=== PATIENT | male | born 1960 | race Caucasian/White ===

== ENCOUNTER 2020-10-11 09:19 | Outpatient (CLI) | payer BC, SELFPAY ==
--- NOTE | 2020-10-11 09:38 | XR_ITS ---
WS: [id number] LEFT KNEE: 3 VIEW(S) TECHNIQUE: AP, oblique(s) and lateral. HISTORY: ACUTE PAIN OF LEFT KNEE COMPARISON: None available. No fracture or dislocation. Mild narrowing of the medial compartment. No joint effusion. Mild soft tissue edema surrounding the knee. XR/XR knee LT 3V* [id number] IMPRESSION: Mild medial compartment narrowing. No fractures.
== END 2020-10-11 09:20 | disposition home or self-care (01) ==
PROVIDERS: PCP Family Medicine
DX: M25.562 Pain in left knee (principal)
CPT/HCPCS: 73562

== ENCOUNTER 2022-06-22 05:49 | Day surgery (SDC) | payer BC, SELFPAY ==
[2022-06-21 13:58] VITALS: BMI 25.7
[2022-06-22] VITALS (7 sets, daily range): BP systolic 125–170; BP diastolic 97–108; PULSE 63–88; RESP 12–22; TEMP 36.2–36.7; O2SAT 95–100
--- NOTE | 2022-06-22 06:09 | P.ANESASSM_ITS ---
Pre-Anesthetic Assessment Height/Weight: Height 1.8 m Weight 83.461 kg Preop Diagnosis: Bilat inguinal hernias Operation Date: 06/22/22 07:00 Proposed Procedures p 78787 x2--lap bilateral inguinal hernia repair with mesh K40.20(Bilateral) - Ar Alicia DO Familial anesthetic complications: None Was Beta Katherine taken within 24 hours: N/A Was Clonidine taken within 24 hours: N/A Last intake: 06/21/22 Social Alcohol and Tobacco (Chewing tobacco, last use 0600 spits out saliva and tobacco) Exam alert, oriented x 3, clear to auscultation bilaterally and regular rate & rhythm Airway Submandibular: within normal limits Cervical ROM: within normal limits Mallampati: Class I Dentition: full History/ROS No significant complaints Pulmonary None reported CV/HEM None reported METS > 4 None reported Hepatic None reported GI None reported Metabolic None reported Musc/skel None reported b/l inguinal hernia Neuropsych None reported Anesthetic Plan ASA status: 2 Anesthesia: Anesthesia Evaluation and General Other: We discussed risk and benefits of general anesthesia including PONV, sore throat (sometimes severe), corneal abrasion, positioning and peripheral nerve injuries, life threatening allergic reaction, post operative ICU admission requiring prolonged intubation, stroke, heart attack, , and rare incidences of recall. Patient consents to proceed with general anesthesia. Risk of > 500 ml blood loss (7ml/kg in children): No Medications/Allergies Home Medications Medication Instructions Recorded Confirmed Last Taken Type tramadol 50 mg tablet 50 mg PO Q6H PRN pain #30 tabs 05/26/22 06/22/22 06/07/22 Rx Allergies Allergy/AdvReac Type Severity Reaction Status Date / Time Penicillins Allergy Mild ALGY-Bliste Verified 06/22/22 06:05 r meperidine [From Demerol] Allergy Unknown Verified 06/22/22 06:05 morphine Allergy Unknown Verified 06/22/22 06:05 [facility] Anesthesia Medical History Deep inguinal pain, right Inguinal hernia Surgical History History of knee surgery History of laparoscopic cholecystectomy History of rhinoplasty Social History Smoking and tobacco status: former smoker Alcohol intake: current Alcohol intake frequency: few times a month Data Anesthesia Cardiac Studies: No Data to Display
[2022-06-22] MEDS: sodium chloride 0.9% 1,000 ML 30 ML IV (06:22)
[2022-06-22] MEDS: famotidine 20 mg/2 mL INJ IVP (06:50)
[2022-06-22] MEDS: metoclopramide 5 mg/mL SDV 2 mL 10 MG IVP (06:50)
--- NOTE | 2022-06-22 06:54 | W.PM.OPSUD ---
Surgery/Procedure H&P Update DATE OF PROCEDURE: June 22, 2022 DATE H&P PERFORMED: 06/02/22 PREOP DIAGNOSIS: Bilat inguinal hernias PLANNED PROCEDURE: Operation Date: 06/22/22 07:00 Proposed Procedures p [id number] x2--lap bilateral inguinal hernia repair with mesh K40.20(Bilateral) - Ar Alicia DO
[2022-06-22] MEDS: vancomycin 1,500 MG/300 ML PIGGYBACK 200 MG IV (07:00)
--- NOTE | 2022-06-22 07:51 | P.OP_ITS ---
Operative Report Date of procedure: June 22, 2022 Pre-op diagnosis: Preop Diagnosis Bilat inguinal hernias Post-op diagnosis: same Procedure done: Laparoscopic bilateral inguinal hernia repairs with Implants: Large left and right 3D max inguinal mesh is Surgeon: Dr. Ar Alicia DO Anesthesia: General Estimated blood loss (mL): 2 Complications: None apparent Brief History: Is a very pleasant 62 with bilateral inguinal hernias office laparoscopic repair of bilateral inguinal hernias with mesh was indicated. The risks and benefits were explained and documented Procedure: Patient was wheeled into the operative room and placed on the OR table in a supine position. Abdomen was inspected prepped and draped in usual sterile fashion. Time-out was performed and all present were in agreement. A 15 blade scalpel was used to make 1.2 centimeter incision infraumbilically. Combination of sharp and blunt dissection was performed down to the anterior rectus sheath which was opened sharply. The dissecting balloon was then inserted into the space of Retzius and blown up. We put the camera into the port and identified that we were in the correct space. I then placed 2 5 millimeter trocars suprapubically in the midline. I then used endokitners to bluntly dissect in the space of Retzius out laterally. An indirect inguinal hernia was identified on the right. Blunt dissection was performed to dissect down the hernia sac until the vas deferens dove medially. A large right inguinal mesh was then placed into the space of Retzius. The mesh was unrolled and tacked once medi ally at the pubic bone. The mesh laid out nicely over the spermatic cord. An indirect inguinal hernia was identified on the left. Blunt dissection was performed to dissect down the hernia sac until the vas deferens dove medially. A large left inguinal mesh was then placed into the space of Retzius. The mesh was unrolled and tacked once medially at the pubic bone. The mesh laid out nicely over the spermatic cord. I watched the hernia sacs remain in place as insufflation was removed. Incisions were closed with 4 O Vicryl in a subcuticular interrupted fashion. Skin glue was applied. Patient tolerated the procedure well.
[2022-06-22] MEDS: HYDROcodone-acetaminophen 7.5-325 mg Tablet 1 TAB PO (09:00)
--- NOTE | 2022-06-22 14:26 | ANE.PACU2 ---
Inpatient post-anesthesia follow up: Airway intact: Yes Vital signs: Temperature 97.9 F Pulse Rate 63 Respiratory Rate 16 Blood Pressure 150/97 Pulse Oximetry 97 Oxygen Delivery Me thod Room Air Oxygen Flow Rate 6 Fraction of Inspir ed Oxygen Hydration adequate: Yes Nausea and vomiting: No Pain level: 1 Mental status: Baseline
== END 2022-06-22 09:30 | disposition home or self-care (01) ==
PROVIDERS: PCP Family Medicine; Visit Provider Surgery
PROC: (CPT 49650; principal; 2022-06-22 07:00)
DX: K40.20 Bilateral inguinal hernia, without obstruction or gangrene, not specified as recurrent (principal); F17.220 Nicotine dependence, chewing tobacco, uncomplicated
CPT/HCPCS: 49505; 51702; C1781; J0330; J1100; J1170; J2405; J2704; J2710; J2765; J3010; J3370; J3490; J7030

== ENCOUNTER 2023-01-24 01:04 | Emergency (ER) | payer BC, SELFPAY ==
[2023-01-24 01:11] VITALS: BP 141/100; PULSE 70; RESP 18; TEMP 37.1; O2SAT 93; BMI 25.4
[2023-01-24 01:18] VITALS: BP 141/100; RESP 16; TEMP 35.9
--- NOTE | 2023-01-24 01:18 | CTR_ITS ---
PROCEDURE INFORMATION: Exam: CT Abdomen And Pelvis Without Contrast Exam date and time: 01/24/2023 1:29 AM Age: 63 years old Clinical indication: Abdominal pain; Right; Prior surgery; Surgery type: Gb. Hernia; Patient HX: C/O RT flank pain. ; Additional info: Right flank radiating into groin TECHNIQUE: Imaging protocol: Computed tomography of the abdomen and pelvis without contrast. Radiation optimization: All CT scans at this facility use at least one of these dose optimization techniques: automated exposure control; mA and/or kV adjustment per patient size (includes targeted exams where dose is matched to clinical indication); or iterative reconstruction. REPORTING DATA: Count of CT and Cardiac NM exams in prior 12 months: This patient has received 0 known CTs and 0 known cardiac nuclear medicine studies in the 12 months prior to the current study. COMPARISON: No relevant prior studies available. RADIATION DOSE METRICS: Total DLP (mGy-cm): 575.24 FINDINGS: Liver: Unremarkable. Gallbladder and bile ducts: Status post cholecystectomy. Pancreas: No ductal dilation. Spleen: No splenomegaly. Adrenal glands: Normal. No mass. Kidneys and ureters: No calcified renal or ureteral stones. No hydronephrosis. Stomach and bowel: Slightly prominent fluid-filled loops of small bowel measuring up to 2.8 cm noted in the right lower quadrant. Findings may be seen with ileus/enteritis or partial low-grade obstruction in the appropriate clinical context. Appendix: No evidence of appendicitis. Intraperitoneal space: No free air. No significant fluid collection. Vasculature: No abdominal aortic aneurysm. Lymph nodes: Nonspecific scattered mesenteric lymph nodes. Urinary bladder: Unremarkable as visualized. Reproductive: Unremarkable as visualized. Bones/joints: Unremarkable. No acute fracture. Soft tissues: Unremarkable. CT/CT kidney stone [id number] IMPRESSION: 1. Slightly prominent fluid-filled loops of small bowel measuring up to 2.8 cm noted in the right lower quadrant. Findings may be seen with ileus/enteritis or partial low-grade obstruction in the appropriate clinical context. 2. No calcified renal or ureteral stones. No hydronephrosis. 3. Normal appendix.
--- NOTE | 2023-01-24 01:20 | ED_ITS ---
HPI - Back Pain/Injury General: Chief Complaint: Back Pain/Injury Stated Complaint: lower back pain Time Seen by Provider: 01/24/23 01:11 History of Present Illness: 63-year-old male patient comes in today with complaints of low back pain radiating into his right groin. Patient reports a history of low back pain and inguinal hernia repair 1 year ago. Patient reports started with back pain on Sunday which is worsened the last 2 days. Patient has used some ibuprofen with minimal relief of pain. Patient awakened tonight with worsening pain which prompted him to come to the ER. Patient appears nontoxic. Patient appears in moderate pain. Associated symptoms: Reports nausea; Deny vomiting Review of Systems General: Reports: 10 or more systems reviewed and unremarkable except in HPI and below Card: Denies: chest pain Resp: Denies: dyspnea GI: Reports: nausea; Denies: vomiting, diarrhea or constipation : Denies: difficulty urinating Musc: Reports: back pain and extremity pain Skin/Breast: Denies: rash Neuro: Denies: numbness in extremities PFSH ED PFSH: Medical History Deep inguinal pain, right Inguinal hernia Surgical History History of knee surgery History of laparoscopic cholecystectomy History of rhinoplasty Social History Smoking and tobacco status: former smoker Alcohol intake: current Alcohol intake frequency: few times a month Substance/Drug Use: never Physical Exam Const: COMMON NORMALS: alert HENMT: COMMON NORMALS: normocephalic HEAD & SCALP: normocephalic MOUTH: Normal oral and palatal mucosa present THROAT: posterior oropharynx normal Neck/C-Spine: COMMON NORMALS: full ROM Resp: COMMON NORMALS: normal respiratory effort and clear to auscultation bilaterally AUSCULTATION: clear to auscultation bilaterally Cardio: COMMON NORMALS: regular rate and regular rhythm RATE: regular rate RHYTHM: regular rhythm GI: AUSCULTATION: Yes normoactive bowel sounds PALPATION: Yes Tenderness to palpation present (GI) (Right lower quadrant) : COMMON NORMALS: Yes no CVA tenderness BLADDER/KIDNEY EXAM: Yes no CVA tenderness Back/Pelvis: COMMON NORMALS: no CVA tenderness THORACIC SPINE/UPPER BACK: No thoracic spinal tenderness LUMBAR SPINE/LOWER BACK: No lumbar spinal tenderness SACROILIAC JOINTS: Yes SI joint(s) abnormal SI joint details: tender to palpation (Right side) OTHER: Positive leg lift test 45 degrees on the right Extremity: COMMON NORMALS: full ROM and no pedal edema Neuro: SENSORIUM/ORIENTATION: Yes alert Skin: COMMON NORMALS: turgor normal GENERAL SKIN EXAM: turgor normal Course Vital Signs: Vital signs: Vital Signs Temperature 96.6 F L 01/24/23 01:18 Pulse Rate 70 01/24/23 01:11 Respiratory Rate 18 01/24/23 01:40 Blood Pressure 141/100 01/24/23 01:18 Pulse Oximetry 91 01/24/23 01:40 Oxygen Delivery Me thod Room Air 01/24/23 01:11 MDM - Back Pain/Injury Medical Decision Making 63-year-old male patient comes in today with complaints of low back pain radiating into his lower abdomen and down his right lower leg. Patient reports pain started Sunday and has worsened with waking him up tonight due to the pain. Patient appears nontoxic. Patient reports having a bowel movement today. On exam no tenderness is noted along the thoracic or lumbar spine. Patient does have some sacroiliac tenderness. Tenderness is noted in the inguinal area. No redness is noted on visualization. Bowel sounds are hyperactive. Differential diagnosis includes but not limited to renal calculi, lumbar radiculopathy, bowel obstruction, constipation. CBC and CMP were unremarkable. CT noted prominent fluid-filled small bowel in the right lower quadrant suggesting either ileus, enteritis, or partial low-grade obstruction. I reviewed this with Dr. Abraham who recommended discussion with the patient and offer admission or home with trial of clear liquid diet. I discussed this with the patient who wanted to go home on a clear liquid diet and return if needed. I reviewed recommendations and need for return due to inability to hold fluids down, high fever, blood in vomit or stool. Patient reported understanding and agreed to plan. Labs 01/24/23 01:20 01/24/23 01:20 Radiology Impressions Abdomen/Pelvis CT 01/24/23 01:18 IMPRESSION: 1. Slightly prominent fluid-filled loops of small bowel measuring up to 2.8 cm noted in the right lower quadrant. Findings may be seen with ileus/enteritis or partial low-grade obstruction in the appropriate clinical context. 2. No calcified renal or ureteral stones. No hydronephrosis. 3. Normal appendix. Laboratory Results WBC 7.3 10^3/uL (4.0-10.0) 01/24/23 01:20 RBC 4.95 10^6/uL (4.1-5.3) 01/24/23 01:20 Hgb 15.1 g/dL (11.7-16.6) 01/24/23 01:20 Hct 46.3 % (42.0-52.0) 01/24/23 01:20 MCV 93.5 fl (80-94) 01/24/23 01:20 MCH 30.5 pg (28.0-34.0) 01/24/23 01:20 MCHC 32.6 g/dL (30.0-36.0) 01/24/23 01:20 RDW 13.1 % (12.1-15.1) 01/24/23 01:20 Plt Count 234 10^3/cmm (130-400) 01/24/23 01:20 MPV 9.2 fL (7.4-10.4) 01/24/23 01:20 Neut % (Auto) 51.7 % 01/24/23 01:20 Lymph % (Auto) 35.7 % 01/24/23 01:20 [place] % (Auto) 8.0 % 01/24/23 01:20 Eos % (Auto) 4.0 % 01/24/23 01:20 Baso % (Auto) 0.5 % 01/24/23 01:20 Neut # (Auto) 3.76 10^3/uL (1.8-7.7) 01/24/23 01:20 Lymph # (Auto) 2.6 10^3/uL (0.8-4.8) 01/24/23 01:20 [place] # (Auto) 0.6 10^3/uL (0.2-0.9) 01/24/23 01:20 Eos # (Auto) 0.3 10^3/uL (0.0-0.8) 01/24/23 01:20 Baso # (Auto) 0.0 10^3/uL (0.0-0.1) 01/24/23 01:20 Nucleated RBC % (auto) 0 % 01/24/23 01:20 Nucleated RBCs # 0.0 /100WBC 01/24/23 01:20 ESR 3 mm/hr (0-10) 01/24/23 01:20 Sodium 138 mmol/L (136-145) 01/24/23 01:20 Potassium 4.0 mmol/L (3.5-5.1) 01/24/23 01:20 Chloride 105 mmol/L (98-107) 01/24/23 01:20 Carbon Dioxide 23 mmol/L (22-29) 01/24/23 01:20 Anion Gap 14.0 (5-19) 01/24/23 01:20 BUN 15 mg/dL (8-23) 01/24/23 01:20 Creatinine 1.1 mg/dL (0.7-1.2) 01/24/23 01:20 GFR Calculation 68.1 mL/min (90-130) L 01/24/23 01:20 Glucose 107 mg/dL (65-115) 01/24/23 01:20 Calculated Osmolality 287 mOsm/kg (285-295) 01/24/23 01:20 Calcium 8.6 mg/dL (8.5-10.5) 01/24/23 01:20 Total Bilirubin 0.2 mg/dL (0.15-1.2) 01/24/23 01:20 AST 16 U/L (0-40) 01/24/23 01:20 ALT 18 U/L (0-41) 01/24/23 01:20 Alkaline Phosphatase 68 U/L (40-130) 01/24/23 01:20 C-Reactive Protein 3.0 mg/L (0.0-4.9) 01/24/23 01:20 Total Protein 6.5 g/dL (6.6-8.7) L 01/24/23 01:20 Albumin 3.9 g/dL (3.5-5.2) 01/24/23 01:20 Globulin 2.6 g/dL (1.3-4.6) 01/24/23 01:20 Discharge Plan Discharge Patient Disposition: Home Clinical Impression: Ileus, unspecified Condition: Stable Prescriptions: No Action tramadol 50 mg tablet 50 mg PO Q6H PRN (Reason: pain) Qty: 30 0RF Hold Instructions: Resume on 06/27/22. hydrocodone-acetaminophen 7.5-325 mg tablet 1 tab PO Q6H PRN (Reason: pain) Qty: 20 0RF Discharge Orders: Discharge ED (Routine); Ordered 01/24/23 Ordered By: Hemant Fang Discharge Diet: Usual diet Discharge Activity: Increase activity as tolerated Patient Instructions: Ileus (ED) Activity Restrictions/Additional Instructions: Drink plenty of water and fluids. Maintain a clear liquid diet until the pain resolves. Follow-up with primary care as needed. Return to emergency department for worsening symptoms such as severe pain, blood in vomit or stool, inability to hold fluids down, or high fever greater than 100.4. Coding Level of Care Code ED [employer] for Fatou Anders
[2023-01-24 01:27] LABS: Erythrocyte Sedimentation Rate 3 mm/hr (0-10)
[2023-01-24 01:29] LABS: Basophils % 0.5 %; Eosinophils # 0.3 10^3/uL (0.0-0.8); Hematocrit 46.3 % (42.0-52.0); Hemoglobin 15.1 g/dL (11.7-16.6); Lymphocytes # 2.6 10^3/uL (0.8-4.8); Lymphocytes % 35.7 %; Mean Corpuscular HGB Conc 32.6 g/dL (30.0-36.0); Mean Corpuscular Hemoglobin 30.5 pg (28.0-34.0); Mean Corpuscular Volume 93.5 fl (80-94); Mean Platelet Volume 9.2 fL (7.4-10.4); Monocytes # 0.6 10^3/uL (0.2-0.9); Neutrophils # 3.76 10^3/uL (1.8-7.7); Neutrophils % 51.7 %; Nucleated Red Blood Cells % 0 %; Platelet Count 234 10^3/cmm (130-400); Red Blood Count 4.95 10^6/uL (4.1-5.3); Red Cell Distribution Width 13.1 % (12.1-15.1); White Blood Count 7.3 10^3/uL (4.0-10.0)
[2023-01-24 01:40] VITALS: RESP 18; O2SAT 91
[2023-01-24] MEDS: fentaNYL 50 mcg/mL INJ 2mL IVP (01:40)
[2023-01-24] MEDS: ketorolac 30 mg/mL INJ 15 MG IVP (01:41)
[2023-01-24] MEDS: ondansetron 2 mg/ML SDV 2 mL 4 MG IVP (01:41)
[2023-01-24 01:46] LABS: Alanine Aminotransferase 18 U/L (0-41); Albumin Level 3.9 g/dL (3.5-5.2); Alkaline Phosphatase 68 U/L (40-130); Aspartate Amino Transferase 16 U/L (0-40); Blood Urea Nitrogen 15 mg/dL (8-23); Calcium 8.6 mg/dL (8.5-10.5); Carbon Dioxide 23 mmol/L (22-29); Chloride 105 mmol/L (98-107); Globulin 2.6 g/dL (1.3-4.6); Glomerular Filtration Rate 68.1 mL/min (90-130); Glucose 107 mg/dL (65-115); Osmolality Calculated 287 mOsm/kg (285-295); Sodium 138 mmol/L (136-145); Total Bilirubin 0.2 mg/dL (0.15-1.2); Total Protein 6.5 g/dL (6.6-8.7)
[2023-01-24 02:51] LABS: Add Urine Microscopic? NO; Charge for UA Resulting for Rev
[2023-01-24 02:59] VITALS: BP 107/52; PULSE 58; O2SAT 92
[2023-01-24 03:03] LABS: Bilirubin Urine Neg (Negative); Blood Urine Neg (Negative); Glucose Urine UA Norm (Normal); Ketones Urine Negative (Negative); Leukocyte Esterase Urine Negative (Negative); Nitrate Urine Negative (Negative); Protein Urine Neg (Negative); Urine Appearance Clear (CLEAR); Urine Color Yellow (Yellow); Urobilinogen Urine Norm (Negative); pH Urine 5 (5-7)
--- NOTE | 2023-01-26 12:46 | DCPLANNER ---
Addendum entered by Tiara Gavin 02/02/23 13:59: Patient had a follow up appointment scheduled with Dr. Rouse to establish for primary care - patient did attend appointment. Original Note: dude ranch manager called patient due to no primary care physician - case worker spoke with patient, he stated that he would like help in getting established with a primary care physician. dude ranch manager called [facility], gave clinic patients information. A follow up appointment was scheduled for January at 9:[address] Cotton at [facility].
== END 2023-01-24 03:00 | disposition home or self-care (01) ==
PROVIDERS: Emergency Provider Nurse Practitioner Family
DX: K56.7 Ileus, unspecified (principal); Z87.891 Personal history of nicotine dependence
CPT/HCPCS: 74176; 80053; 81003; 85025; 85651; 86140; 96374; 96375; 99285; J1885; J2405; J3010

== ENCOUNTER 2023-01-28 02:08 | Emergency (ER) | payer BC, SELFPAY ==
[2023-01-28 02:15] VITALS: BP 148/93; PULSE 70; RESP 18; TEMP 36.6; O2SAT 97; BMI 23.7
[2023-01-28 02:32] LABS: Basophils # 0.1 10^3/uL (0.0-0.1); Basophils % 0.8 %; Eosinophils # 0.4 10^3/uL (0.0-0.8); Eosinophils % 4.8 %; Hematocrit 49.8 % (42.0-52.0); Hemoglobin 16.1 g/dL (11.7-16.6); Lymphocytes # 2.2 10^3/uL (0.8-4.8); Lymphocytes % 30.7 %; Mean Corpuscular HGB Conc 32.3 g/dL (30.0-36.0); Mean Corpuscular Hemoglobin 30.5 pg (28.0-34.0); Mean Corpuscular Volume 94.3 fl (80-94); Mean Platelet Volume 9.1 fL (7.4-10.4); Monocytes # 0.6 10^3/uL (0.2-0.9); Neutrophils # 4.04 10^3/uL (1.8-7.7); Neutrophils % 55.6 %; Nucleated Red Blood Cells % 0 %; Platelet Count 230 10^3/cmm (130-400); Red Blood Count 5.28 10^6/uL (4.1-5.3); Red Cell Distribution Width 12.8 % (12.1-15.1); White Blood Count 7.3 10^3/uL (4.0-10.0)
--- NOTE | 2023-01-28 02:48 | CTR_ITS ---
PROCEDURE INFORMATION: Exam: CT Abdomen And Pelvis With Contrast Exam date and time: 01/28/2023 3:04 AM Age: 63 years old Clinical indication: Abdominal pain; Localized; Right; Prior surgery; Surgery date: 6+ months; Surgery type: Hernia repair, cholecystectomy; Additional info: Right abdominal pain TECHNIQUE: Imaging protocol: Computed tomography of the abdomen and pelvis with contrast. Radiation optimization: All CT scans at this facility use at least one of these dose optimization techniques: automated exposure control; mA and/or kV adjustment per patient size (includes targeted exams where dose is matched to clinical indication); or iterative reconstruction. Contrast material: OMNI 350; Contrast volume: 100 ml; Contrast route: INTRAVENOUS (IV); REPORTING DATA: Count of CT and Cardiac NM exams in prior 12 months: This patient has received [address] and 0 known cardiac nuclear medicine studies in the 12 months prior to the current study. COMPARISON: CT kidney stone [id number] 01/24/2023 1:29 AM RADIATION DOSE METRICS: Total DLP (mGy-cm): 612.04 FINDINGS: Liver: Normal. No mass. Gallbladder and bile ducts: Status post cholecystectomy. The common bile duct is prominent measuring 10.1 mm in its midportion tapering to normal caliber within the pancreas. Pancreas: Normal. No ductal dilation. Spleen: Punctate calcifications are seen in the spleen compatible calcified granulomas. Adrenal glands: Normal. No mass. Kidneys and ureters: Normal. No hydronephrosis. Stomach and bowel: Nondilated small bowel loops are seen containing some fluid and a few air-fluid levels, findings that could represent mild ileus. Appendix: The appendix is visualized and is normal in configuration. Intraperitoneal space: Unremarkable. No free air. No significant fluid collection. Vasculature: Unremarkable. No abdominal aortic aneurysm. Lymph nodes: Unremarkable. No enlarged lymph nodes. Urinary bladder: Unremarkable as visualized. Reproductive: Unremarkable as visualized. Bones/joints: Unremarkable. No acute fracture. Soft tissues: There are small bilateral inguinal hernias containing fat. CT/CT abdomen pelvis w con* [id number] IMPRESSION: 1. Nondilated small bowel loops containing fluid and a few air-fluid levels could represent mild ileus. 2. Small bilateral inguinal hernias containing fat 3. Mildly prominent common bile duct without evidence for choledocholithiasis or extrinsic masses. This is likely compensatory to cholecystectomy. 4. Normal appendix 5. No evidence for ureteral obstruction
--- NOTE | 2023-01-28 02:49 | W.ED.BACK ---
HPI - Back Pain/Injury General: Chief Complaint: Back Pain/Injury Stated Complaint: back pain Time Seen by Provider: 01/28/23 02:14 Source: patient and family History of Present Illness: 63-year-old male presenting with right-sided back and belly pain. He was here 5 nights ago with similar symptoms. He was told that he had a partial small bowel obstruction, and offered admission. He chose to go home on a liquid diet, and his symptoms seemed to resolve. This was the case until last night, when symptoms returned. He is nauseated but has not vomited. No diarrhea. Stools have been normal. He has a history of a cholecystectomy as well as a right inguinal hernia repair. No fever. MD elicited complaint: back pain Pertinent past history: prior back pain and other Onset (ago): hour(s) Timing: constant Severity: moderate Similar Symptoms Previously: Yes Quality: stabbing and aching Location: right flank Radiation: abdomen and groin Relieving factors: none Associated symptoms: Reports abdominal pain, fatigue and nausea; Deny dysuria, fecal incontinence, hematuria or vomiting Review of Systems Const: Reports: fatigue Card: Denies: chest pain or palpitations Resp: Denies: dyspnea, productive cough or non-productive cough GI: Reports: abdominal pain and nausea; Denies: vomiting or fecal incontinence : Reports: flank pain; Denies: difficulty urinating, dysuria or hematuria Musc: Reports: back pain PFSH ED PFSH: Medical History Deep inguinal pain, right Inguinal hernia Surgical History History of knee surgery History of laparoscopic cholecystectomy History of rhinoplasty Social History Smoking and tobacco status: former smoker Alcohol intake: current Alcohol intake frequency: few times a month Substance/Drug Use: never Physical Exam Const: COMMON NORMALS: no acute distress GENERAL APPEARANCE: cooperative; not ill appearing and not frail appearing HENMT: COMMON NORMALS: normocephalic, atraumatic and Normal external nose present HEAD & SCALP: normocephalic and atraumatic FACE & SINUS: normal facial exam and face symmetric NOSE: Normal external nose present Eye: COMMON NORMALS: Equal, round and reactive pupils present and EOMs intact bilaterally PUPIL: Yes Equal, round and reactive pupils present Neck/C-Spine: GENERAL: Yes trachea midline Chest: CHEST: Yes Symmetrical chest wall rise Resp: COMMON NORMALS: normal respiratory effort, No retractions, No use of accessory muscles and clear to auscultation bilaterally AUSCULTATION: clear to auscultation bilaterally Cardio: COMMON NORMALS: regular rate and regular rhythm RATE: regular rate RHYTHM: regular rhythm GI: INSPECTION: Yes abdominal distension PALPATION: Yes Firmness to palpation present (GI) and Yes Tenderness to palpation present (GI) Details: RLQ : BLADDER/KIDNEY EXAM: Yes CVA tenderness on the right Back/Pelvis: GENERAL BACK: Yes CVA tenderness Extremity: COMMON NORMALS: no pedal edema Neuro: CHASIDY COMA SCALE: document GCS findings [place]asper coma scale eye opening: Spontaneous [place] coma scale verbal response: Orientated [place] coma scale motor response: Obey commands Chasidy coma scale total score: 15 SENSORY EXAM: Yes extremities (intact) Psych: COMMON NORMALS: speech normal SPEECH: Yes normal speech Skin: COMMON NORMALS: no rashes or lesions noted GENERAL SKIN EXAM: no rashes or lesions noted Course Vital Signs: Vital signs: Vital Signs Temperature 98 F 01/28/23 02:15 Pulse Rate 88 01/28/23 04:41 Respiratory Rate 16 01/28/23 04:41 Blood Pressure 103/80 01/28/23 04:41 Pulse Oximetry 96 01/28/23 03:30 Oxygen Delivery Me thod Room Air 01/28/23 03:30 MDM - Back Pain/Injury Medical Decision Making Vitals are stable. No vomiting here. CBC is normal. BMP is not remarkable. Liver enzymes are normal. Lactate is 0.8. Urinalysis is negative. Repeat CT scan shows an ileus without signs of mechanical obstruction. Treatment options reviewed with the patient. These include admission for IV fluid and bowel rest versus home on liquids again as an previous, but this time more likely with bowel prep to stimulate resolution of ileus. And he chose the latter. I think this is appropriate given his presentation. He knows to return for any worsening symptoms. Labs 01/28/23 02:24 01/28/23 02:24 Radiology Impressions Abdomen/Pelvis CT 01/28/23 02:48 IMPRESSION: 1. Nondilated small bowel loops containing fluid and a few air-fluid levels could represent mild ileus. 2. Small bilateral inguinal hernias containing fat 3. Mildly prominent common bile duct without evidence for choledocholithiasis or extrinsic masses. This is likely compensatory to cholecystectomy. 4. Normal appendix 5. No evidence for ureteral obstruction Laboratory Results WBC 7.3 10^3/uL (4.0-10.0) 01/28/23 02:24 RBC 5.28 10^6/uL (4.1-5.3) 01/28/23 02:24 Hgb 16.1 g/dL (11.7-16.6) 01/28/23 02:24 Hct 49.8 % (42.0-52.0) 01/28/23 02:24 MCV 94.3 fl (80-94) H 01/28/23 02:24 MCH 30.5 pg (28.0-34.0) 01/28/23 02:24 MCHC 32.3 g/dL (30.0-36.0) 01/28/23 02:24 RDW 12.8 % (12.1-15.1) 01/28/23 02:24 Plt Count 230 10^3/cmm (130-400) 01/28/23 02:24 MPV 9.1 fL (7.4-10.4) 01/28/23 02:24 Neut % (Auto) 55.6 % 01/28/23 02:24 Lymph % (Auto) 30.7 % 01/28/23 02:24 [place] % (Auto) 8.0 % 01/28/23 02:24 Eos % (Auto) 4.8 % 01/28/23 02:24 Baso % (Auto) 0.8 % 01/28/23 02:24 Neut # (Auto) 4.04 10^3/uL (1.8-7.7) 01/28/23 02:24 Lymph # (Auto) 2.2 10^3/uL (0.8-4.8) 01/28/23 02:24 [place] # (Auto) 0.6 10^3/uL (0.2-0.9) 01/28/23 02:24 Eos # (Auto) 0.4 10^3/uL (0.0-0.8) 01/28/23 02:24 Baso # (Auto) 0.1 10^3/uL (0.0-0.1) 01/28/23 02:24 Nucleated RBC % (auto) 0 % 01/28/23 02:24 Nucleated RBCs # 0.0 /100WBC 01/28/23 02:24 Sodium 135 mmol/L (136-145) L 01/28/23 02:24 Potassium 4.3 mmol/L (3.5-5.1) 01/28/23 02:24 Chloride 101 mmol/L (98-107) 01/28/23 02:24 Carbon Dioxide 24 mmol/L (22-29) 01/28/23 02:24 Anion Gap 14.3 (5-19) 01/28/23 02:24 BUN 18 mg/dL (8-23) 01/28/23 02:24 Creatinine 1.2 mg/dL (0.7-1.2) 01/28/23 02:24 GFR Calculation 61.6 mL/min (90-130) L 01/28/23 02:24 Glucose 103 mg/dL (65-115) 01/28/23 02:24 Calculated Osmolality 282 mOsm/kg (285-295) L 01/28/23 02:24 Lactate 0.8 mmol/L (0.5-2.2) 01/28/23 02:24 Calcium 8.8 mg/dL (8.5-10.5) 01/28/23 02:24 Total Bilirubin 0.3 mg/dL (0.15-1.2) 01/28/23 02:24 AST 20 U/L (0-40) 01/28/23 02:24 ALT 25 U/L (0-41) 01/28/23 02:24 Alkaline Phosphatase 69 U/L (40-130) 01/28/23 02:24 Total Protein 6.9 g/dL (6.6-8.7) 01/28/23 02:24 Albumin 4.0 g/dL (3.5-5.2) 01/28/23 02:24 Globulin 2.9 g/dL (1.3-4.6) 01/28/23 02:24 Lipase 49 U/L (13-60) 01/28/23 02:24 TSH 3.69 uIU/mL (0.27-4.20) 01/28/23 02:24 Urine Color Yellow (Yellow) 01/28/23 03:02 Urine Appearance Clear (CLEAR) 01/28/23 03:02 Urine pH 7 (5-7) 01/28/23 03:02 Ur Specific [place] 1.010 (1.005-1.030) 01/28/23 03:02 Urine Protein Neg (Negative) 01/28/23 03:02 Urine Glucose (UA) Norm (Normal) 01/28/23 03:02 Urine Ketones Negative (Negative) 01/28/23 03:02 Urine Blood Neg (Negative) 01/28/23 03:02 Urine Nitrate Negative (Negative) 01/28/23 03:02 Urine Bilirubin Neg (Negative) 01/28/23 03:02 Urine Urobilinogen Norm mg/dL (Negative) 01/28/23 03:02 Ur Leukocyte Esterase Negative (Negative) 01/28/23 03:02 Discharge Plan Discharge Patient Disposition: Home Clinical Impression: Ileus, unspecified Condition: Stable Prescriptions: New ondansetron 4 mg film 4 mg PO DAILY PRN (Reason: nausea and vomiting) Qty: 10 0RF [place] [id number] -5.86 gram recon soln 20 ml PO Q1M Qty: 4000 0RF Rx Instructions: until fecal effluent is clear Continued hydrocodone-acetaminophen 7.5-325 mg tablet 1 tab PO Q6H PRN (Reason: pain) Qty: 10 0RF No Action tramadol 50 mg tablet 50 mg PO Q6H PRN (Reason: pain) Qty: 30 0RF Hold Instructions: Resume on 06/27/22. Discharge Orders: Discharge ED (Routine); Ordered 01/28/23 Ordered By: Jefe Lopez Discharge Diet: Clear Liquid Patient Instructions: Ileus (ED), Opioid Safety, Pain Management Activity Restrictions/Additional Instructions: Follow a strict clear liquid diet for the next 24 hours, then you may introduce Jell-O, soups, etc. after 24 hours of being symptom-free. Continue this diet for 72 hours total minimum. Return for vomiting, fever, blood in the stool, other concerning symptoms. Medications as ordered. Keep in mind, use of pain medication may prolong symptoms of ileus, so use minimally. Coding Level of Care Code ED [employer] for Fatou Anders
[2023-01-28 02:51] LABS: Lactate (Lactic Acid level) 0.8 mmol/L (0.5-2.2)
[2023-01-28 02:57] VITALS: RESP 16
[2023-01-28] MEDS: ondansetron 2 mg/ML SDV 2 mL 4 MG IVP ×2 (02:57→04:34)
[2023-01-28] MEDS: fentaNYL 50 mcg/mL INJ 2mL 75 MCG IVP (02:57)
[2023-01-28 03:01] LABS: Alanine Aminotransferase 25 U/L (0-41); Alkaline Phosphatase 69 U/L (40-130); Aspartate Amino Transferase 20 U/L (0-40); Blood Urea Nitrogen 18 mg/dL (8-23); Calcium 8.8 mg/dL (8.5-10.5); Carbon Dioxide 24 mmol/L (22-29); Chloride 101 mmol/L (98-107); Globulin 2.9 g/dL (1.3-4.6); Glomerular Filtration Rate 61.6 mL/min (90-130); Glucose 103 mg/dL (65-115); Lipase 49 U/L (13-60); Osmolality Calculated 282 mOsm/kg (285-295); Sodium 135 mmol/L (136-145); Thyroid Stimulating Hormone 3.69 uIU/mL (0.27-4.20); Total Bilirubin 0.3 mg/dL (0.15-1.2); Total Protein 6.9 g/dL (6.6-8.7)
[2023-01-28 03:02] LABS: Anion Gap 14.3 (5-19); Potassium 4.3 mmol/L (3.5-5.1)
[2023-01-28 03:03] VITALS: BP 124/87; PULSE 78; RESP 16; O2SAT 96
[2023-01-28] MEDS: iohexol 350 mg/mL 500 mL Btl (per mL) IV (03:07)
[2023-01-28 03:13] LABS: Add Urine Microscopic? NO; Charge for UA Resulting for Rev
[2023-01-28 03:18] LABS: Bilirubin Urine Neg (Negative); Blood Urine Neg (Negative); Glucose Urine UA Norm (Normal); Ketones Urine Negative (Negative); Leukocyte Esterase Urine Negative (Negative); Nitrate Urine Negative (Negative); Protein Urine Neg (Negative); Urine Appearance Clear (CLEAR); Urine Color Yellow (Yellow); Urobilinogen Urine Norm (Negative); pH Urine 7 (5-7)
[2023-01-28 03:30] VITALS: BP 124/87; PULSE 64; O2SAT 96
[2023-01-28] MEDS: ketorolac 30 mg/mL INJ 15 MG IVP (04:34)
[2023-01-28 04:41] VITALS: BP 103/80; PULSE 88; RESP 16
--- NOTE | 2023-01-31 14:13 | DCPLANNER ---
detail manager was triggered to call patient due to no primary care physician. detail manager spoke with patient on his last visit, a follow up appointment to establish care is scheduled for 02.01.[address] saldaña at [facility].
== END 2023-01-28 04:44 | disposition home or self-care (01) ==
PROVIDERS: Emergency Provider Emergency Medicine
DX: K56.7 Ileus, unspecified (principal); Z87.891 Personal history of nicotine dependence
CPT/HCPCS: 74177; 80053; 81003; 83605; 83690; 84443; 85025; 96374; 96375; 96376; 99285; J1885; J2405; J3010; Q9967

== ENCOUNTER → 2023-06-22 11:26 | Outpatient (BNVA) | payer BC, SELFPAY | PROVIDERS: PCP Family Medicine; Visit Provider Family Medicine | DX: M25.562 Pain in left knee (principal); M17.12 Unilateral primary osteoarthritis, left knee | CPT/HCPCS: 73562 ==

== ENCOUNTER → 2025-01-09 12:05 | Outpatient (BNVA) | payer BC, SELFPAY | PROVIDERS: PCP Family Medicine; Visit Provider Family Medicine | DX: Z13.6 Encounter for screening for cardiovascular disorders (principal) | CPT/HCPCS: 85025 ==

== ENCOUNTER → 2025-01-15 08:15 | Outpatient (BNVA) | payer BC, SELFPAY | PROVIDERS: PCP Family Medicine; Visit Provider Family Medicine | DX: Z13.6 Encounter for screening for cardiovascular disorders (principal); Z12.5 Encounter for screening for malignant neoplasm of prostate; R79.89 Other specified abnormal findings of blood chemistry | CPT/HCPCS: 80053; 80061; 84153; 84403; 85025 ==